=== PATIENT | male | born 1990 | race American Indian/Alaskan Native ===

== ENCOUNTER 2018-06-17 14:43 | Emergency (ER) | payer SELFPAY ==
--- NOTE | 2018-06-17 14:59 | Emergency Department Report ---
Blank Doc - Documentation Documentation: This is a 27-year-old male that presents with URI symptoms. This initial assessment/diagnostic orders/clinical plan/treatment(s) is/are subject to change based on patient's health status, clinical progression and re- assessment by fellow clinical providers in the ED. Further treatment and workup at subsequent clinical providers discretion. Patient/guardians urged not to elope from the ED as their condition may be serious if not clinically assessed and managed. Initial orders include: 1- Patient sent to [facility] for further evaluation and treatment 2- CXR
--- NOTE | 2018-06-17 16:35 | XRay Report ---
PROCEDURE: XR CHEST ROUTINE 2V TECHNIQUE: PA and lateral views of the chest. HISTORY: cough COMPARISONS: None FINDINGS: Lines, tubes, and devices: N/A Lungs and pleura: Trachea is normal in position. Lungs are clear of infiltrate, pleural effusion, vas cular congestion, or pneumothorax. Cardiomediastinal silhouette: Cardiac and mediastinal silhouettes are unremarkable. Other: Bony structures are intact. IMPRESSION: No acute cardiopulmonary process seen. This document is electronically signed by Rain De Leon MD., June 17 2018 04:33:37 PM ET
[2018-06-17] MEDS ORDERED: TYLENOL PO ONE (17:38)
[2018-06-17] MEDS ORDERED: TYLENOL ONE (17:39)
--- NOTE | 2018-06-17 19:49 | Emergency Department Report ---
- General Chief Complaint: Upper Respiratory Infection Stated Complaint: CHEST PAIN/WEAKNESS Time Seen by Provider: 06/17/18 14:58 Source: patient Mode of arrival: Ambulatory Limitations: No Limitations - History of Present Illness Initial Comments: Pt is a 27 yo male who presents to the ED with c/o a sore throat that began two days ago. Pt has associated generalized body aches, fever, ROBERTS, congestion. Pt denies any cough or sick contacts. He has not taking anything. He is a smoker. - Related Data Previous Rx's Medication Instructions Recorded Last Taken Type Benzocaine/Menth/Cetylpyrd 8 each MM DAILY PRN #1 packet 06/17/18 Unknown Rx [Cepacol X Strength] Fluticasone [Flonase] 1 spray NS QDAY #1 bottle 06/17/18 Unknown Rx guaiFENesin [Mucinex] 600 mg PO BID #14 tab.er.12h 06/17/18 Unknown Rx Allergies Allergy/AdvReac Type Severity Reaction Status Date / Time No Known Allergies Allergy Unverified 06/17/18 14:46 ED Review of Systems ROS: Stated complaint: CHEST PAIN/WEAKNESS Other details as noted in HPI Comment: All other systems reviewed and negative ED Past Medical Hx - Past Medical History Previous Medical History?: No - Surgical History Past Surgical History?: No - Social History Smoking Status: Current Every Day Smoker Substance Use Type: None - Medications Home Medications: Home Medications Medication Instructions Recorded Confirmed Last Taken Type Benzocaine/Menth/Cetylpyrd 8 each MM DAILY PRN #1 packet 06/17/18 Unknown Rx [Cepacol X Strength] Fluticasone [Flonase] 1 spray NS QDAY #1 bottle 06/17/18 Unknown Rx guaiFENesin [Mucinex] 600 mg PO BID #14 tab.er.12h 06/17/18 Unknown Rx ED Physical Exam - General Limitations: No Limitations General appearance: alert, in no apparent distress - Head Head exam: Present: atraumatic, normocephalic - ENT ENT exam: Present: other (mild posterior oropharynx erythema, no tonsillar exudates or hypertrophy, crusted mucus drainage from bilateral nares, no sinus tenderness bilaterally) - Neck Neck exam: Present: normal inspection. Absent: meningismus - Respiratory Respiratory exam: Present: normal lung sounds bilaterally. Absent: respiratory distress, wheezes, rales, rhonchi, stridor, chest wall tenderness, accessory muscle use, decreased breath sounds - Cardiovascular Cardiovascular Exam: Present: regular rate, normal rhythm, normal heart sounds. Absent: systolic murmur, rubs, gallop - Neurological Exam Neurological exam: Present: alert, oriented X3 - Psychiatric Psychiatric exam: Present: normal affect, normal mood - Skin Skin exam: Present: warm, dry, intact ED Course Vital Signs 06/17/18 06/17/18 06/17/18 14:59 16:20 17:39 Temperature 99.4 F 101.3 F H Pulse Rate 101 H 100 H Respiratory 18 18 16 Rate Blood Pressure 125/70 Blood Pressure 116/75 [Right] O2 Sat by Pulse 98 97 Oximetry 06/17/18 20:05 Temperature 98.5 F Pulse Rate 72 Respiratory 16 Rate Blood Pressure Blood Pressure 124/65 [Right] O2 Sat by Pulse 100 Oximetry ED Medical Decision Making - Lab Data Laboratory Results - last 72 hr 06/17/18 Unknown Influenza A (Rapid) Negative Influenza B (Rapid) Negative Group A Strep Rapid Negative - Radiology Data Radiology results: report reviewed CXR no acute process - Medical Decision Making Pt is a 27 yo male who presents to the ED with c/o a sore throat that began two days ago. Pt has associated generalized body aches, fever, ROBERTS, congestion. Pt denies any cough or sick contacts. He has not taking anything. He is a smoker. CXR with no acute process. Flu and strep negative. sx and examination consistent with URI. Will tx symptomatically. Advised to continue to drink plenty of fluids. Follow up with PCP in the next 2-3 days. Return to the emergency room for any new or worsening symptoms. - Differential Diagnosis PNA, URI, Strep, Flu, Viral syndrome Critical care attestation.: If time is entered above; I have spent that time in minutes in the direct care of this critically ill patient, excluding procedure time. ED Disposition Clinical Impression: Upper respiratory infection Qualifiers: URI type: unspecified URI Qualified Code(s): J06.9 - Acute upper respiratory infection, unspecified Disposition: - TO HOME OR SELFCARE Is pt being admited?: No Does the pt Need Aspirin: No Condition: Stable Instructions: Upper Respiratory Infection (ED) Additional Instructions: follow up with a primary care doctor in the next 2-3 days. Take medication as prescribed. Drink plenty of fluids. Salt water gargle. Alternate tylenol and motrin for a temperature of 100.4 or greater. Return to the emergency room for any new or worsening symptoms. Prescriptions: Benzocaine/Menth/Cetylpyrd [Cepacol X Strength] 8 each MM DAILY PRN #1 packet PRN Reason: Sore Throat Fluticasone [Flonase] 1 spray NS QDAY #1 bottle guaiFENesin [Mucinex] 600 mg PO BID #14 tab.er.12h Referrals: SELINA BRINK MD [Primary Care Provider] - 2-3 Days Time of Disposition: 19:46 Print Language: KYRGYZ
[2018-06-17 20:07] VITALS: BP 124/65
== END 2018-06-17 20:07 | disposition home or self-care (01) ==
LOC: ED 14:43
DX: J06.9 Acute upper respiratory infection, unspecified (principal); F17.200 Nicotine dependence, unspecified, uncomplicated
CPT/HCPCS: 71046; 87116; 87400; 87430

== ENCOUNTER 2018-06-19 01:12 | Emergency (ER) | payer SELFPAY | END 2018-06-19 01:38 | disposition left against medical advice (07) | LOC: ED 01:12 | DX: J11.1 Influenza due to unidentified influenza virus with other respiratory manifestations (principal); Z53.21 Procedure and treatment not carried out due to patient leaving prior to being seen by health care provider ==

== ENCOUNTER 2020-02-14 11:13 | Emergency (ER) | payer SELFPAY ==
[2020-02-14 11:36] VITALS: BP 118/69
--- NOTE | 2020-02-14 12:00 | Emergency Department Report ---
ED ENT HPI - General Chief complaint: Sore Throat Stated complaint: DIFF BREATHNING SWEATING Source: patient Mode of arrival: Ambulatory Limitations: No Limitations - History of Present Illness Initial comments: This pleasant 29-year-old male presents the emergency department chief complaint of sore throat, fever, generalized body aches, headache, malaise over the past 2 3 days. Patient unsure of any sick contacts. He denies any associated nausea, vomiting, diarrhea, jasmin pain, chest pain, cough, lower extremity edema, weakness or any other associated symptoms. He denies any past medical history, current medication use or known allergies to medications. Immunizations are up-to-date. MD complaint: sore throat - Related Data Previous Rx's Medication Instructions Recorded Last Taken Type Benzocaine/Mentho [Cepacol X 8 each MM DAILY PRN #1 packet 06/17/18 Unknown Rx Strength] Fluticasone [Flonase] 1 spray NS QDAY #1 bottle 06/17/18 Unknown Rx guaiFENesin [Mucinex] 600 mg PO BID #14 tab.er.12h 06/17/18 Unknown Rx DOXYCYCLINE Hyclate [Vibramycin 100 mg PO Q12HR #20 capsule 02/14/20 Unknown Rx CAP] Ibuprofen [Motrin 800 MG tab] 800 mg PO Q8HR #30 tablet 02/14/20 Unknown Rx Allergies Allergy/AdvReac Type Severity Reaction Status Date / Time No Known Allergies Allergy Unverified 06/17/18 14:46 ED Dental HPI - General Chief complaint: Sore Throat Stated complaint: DIFF BREATHNING SWEATING Source: patient Mode of arrival: Ambulatory Limitations: No Limitations - Related Data Previous Rx's Medication Instructions Recorded Last Taken Type Benzocaine/Mentho [Cepacol X 8 each MM DAILY PRN #1 packet 06/17/18 Unknown Rx Strength] Fluticasone [Flonase] 1 spray NS QDAY #1 bottle 06/17/18 Unknown Rx guaiFENesin [Mucinex] 600 mg PO BID #14 tab.er.12h 06/17/18 Unknown Rx DOXYCYCLINE Hyclate [Vibramycin 100 mg PO Q12HR #20 capsule 02/14/20 Unknown Rx CAP] Ibuprofen [Motrin 800 MG tab] 800 mg PO Q8HR #30 tablet 02/14/20 Unknown Rx Allergies Allergy/AdvReac Type Severity Reaction Status Date / Time No Known Allergies Allergy Unverified 06/17/18 14:46 ED Review of Systems ROS: Stated complaint: DIFF BREATHNING SWEATING Other details as noted in HPI Comment: All other systems reviewed and negative Constitutional: fever. denies: chills Eyes: denies: eye pain, eye discharge, vision change ENT: throat pain. denies: ear pain Respiratory: denies: cough, shortness of breath, wheezing Cardiovascular: denies: chest pain, palpitations Endocrine: no symptoms reported Gastrointestinal: denies: abdominal pain, nausea, diarrhea Genitourinary: denies: urgency, dysuria Musculoskeletal: denies: back pain, joint swelling, arthralgia Skin: denies: rash, lesions Neurological: denies: headache, weakness, paresthesias Psychiatric: denies: anxiety, depression Hematological/Lymphatic: denies: easy bleeding, easy bruising ED Past Medical Hx - Past Medical History Previous Medical History?: No - Surgical History Past Surgical History?: No - Social History Smoking Status: Current Every Day Smoker Substance Use Type: None - Medications Home Medications: Home Medications Medication Instructions Recorded Confirmed Last Taken Type Benzocaine/Mentho [Cepacol X 8 each MM DAILY PRN #1 packet 06/17/18 Unknown Rx Strength] Fluticasone [Flonase] 1 spray NS QDAY #1 bottle 06/17/18 Unknown Rx guaiFENesin [Mucinex] 600 mg PO BID #14 tab.er.12h 06/17/18 Unknown Rx DOXYCYCLINE Hyclate [Vibramycin 100 mg PO Q12HR #20 capsule 02/14/20 Unknown Rx CAP] Ibuprofen [Motrin 800 MG tab] 800 mg PO Q8HR #30 tablet 02/14/20 Unknown Rx ED Physical Exam - General Limitations: No Limitations General appearance: alert, in no apparent distress - Head Head exam: Present: atraumatic, normocephalic - Eye Eye exam: Present: normal appearance, PERRL, EOMI Pupils: Present: normal accommodation - ENT ENT exam: Present: normal exam, mucous membranes moist, other (Bilateral tonsillar exudate with 1+ tonsillar enlargement. Normal symmetrical appearing tonsils otherwise. No peritonsillar bulging, retropharyngeal bulging or tongue elevation. No dysphonia or drooling. Tender anterior cervical lymphadenopathy bilaterally.) - Neck Neck exam: Present: normal inspection, full ROM, lymphadenopathy. Absent: tenderness, meningismus - Respiratory Respiratory exam: Present: normal lung sounds bilaterally. Absent: respiratory distress, chest wall tenderness - Cardiovascular Cardiovascular Exam: Present: regular rate, normal rhythm. Absent: systolic murmur, diastolic murmur, rubs, gallop - GI/Abdominal GI/Abdominal exam: Present: soft, normal bowel sounds, other (Negative Dasha's point tenderness, negative Romero sign). Absent: distended, tenderness, guarding, rebound, rigid - Rectal Rectal exam: Present: deferred - exam: Present: normal inspection, vertical testicular lie, other (Chaperoned by marketing producer Rio). Absent: testicular tenderness, urethral discharge, scrotal swelling External exam: Absent: lesions - Extremities Exam Extremities exam: Present: normal inspection - Back Exam Back exam: Present: normal inspection - Neurological Exam Neurological exam: Present: alert, oriented X3 - Psychiatric Psychiatric exam: Present: normal affect, normal mood - Skin Skin exam: Present: warm, dry, intact, normal color. Absent: rash ED Course Vital Signs 02/14/20 11:31 Temperature 99.6 F Respiratory 16 Rate Blood Pressure 118/69 ED Medical Decision Making - Medical Decision Making Patient's exam is consistent with streptococcal tonsillitis. Centor criteria is 4 for positive. Patient does not meet sirs criteria. He he did also mention he had some pain to the top of his left testicle that started yesterday. On exam his testicles are both low in the scrotum. There is no high riding testicle. There is no testicular tenderness. There is very minimal tenderness to the left epididymis. There are no varicoceles, hydroceles. No horizontal or vertical IMI suspicion for testicular torsion is very low at this time. We will treat the patient for strep throat but will also cover for epididymitis with doxycycline. Recommended testicular support and outpatient follow-up with primary care doctor. He instructed to return to [facility] department he develops any change or worsening symptoms. Verbalized understand the diagnosis, treatment plan and follow-up instructions all his questions were answered. - Differential Diagnosis Strep throat, mononucleosis, viral syndrome Critical care attestation.: If time is entered above; I have spent that time in minutes in the direct care of this critically ill patient, excluding procedure time. ED Disposition Clinical Impression: Epididymitis, Acute tonsillitis Disposition: [id number]-01 TO HOME OR SELFCARE Is pt being admited?: No Condition: Stable Instructions: Epididymitis (ED), Testicular Self-Exam, Tonsillitis Prescriptions: Ibuprofen [Motrin 800 MG tab] 800 mg PO Q8HR #30 tablet DOXYCYCLINE Hyclate [Vibramycin CAP] 100 mg PO Q12HR #20 capsule Referrals: [facility] [Provider Group] - 3-5 Days Forms: Work/School Release Form(ED) Time of Disposition: 12:05
== END 2020-02-14 12:12 | disposition home or self-care (01) ==
LOC: ED 11:13
DX: N45.1 Epididymitis (principal); J03.90 Acute tonsillitis, unspecified; F17.200 Nicotine dependence, unspecified, uncomplicated; Z79.899 Other long term (current) drug therapy
CPT/HCPCS: 82962

== ENCOUNTER 2021-04-29 04:33 | Emergency (ER) | payer SELFPAY ==
[2021-04-29 06:04] LABS: Basophils % (Auto) 0.4 % (0.0-1.8); Eosinophils % (Auto) 0.7 % (0.0-4.3); Hematocrit 45.9 % (35.5-45.6); Lymphocytes # (Auto) 1.1 K/mm3 (1.2-5.4); Lymphocytes % (Auto) 23.3 % (13.4-35.0); Mean Corpuscular HGB Conc 33 % (32-34); Mean Corpuscular Volume 85 fl (84-94); Monocytes # (Auto) 0.4 K/mm3 (0.0-0.8); Monocytes % (Auto) 8.8 % (0.0-7.3); Platelet Count 249 K/mm3 (140-440); Red Cell Distribution Width 14.1 % (13.2-15.2)
[2021-04-29 06:18] LABS: BUN/Creatinine Ratio 14; Blood Urea Nitrogen 15 mg/dL (9-20); Calcium 9.5 mg/dL (8.4-10.2); Hemolysis Index 6
[2021-04-29 06:30] LABS: Bilirubin,Urine NEG (Negative); Blood,Urine NEG (Negative); Color,Urine Yellow (Yellow); Mucus,Urine 1+ /HPF; RBC,Urine < 1.0 /HPF (0.0-6.0)
[2021-04-29] MEDS ORDERED: METHADONE 10 MG TAB PO ONE (06:31)
[2021-04-29] MEDS ORDERED: cloNIDine 0.1 MG TAB PO ONE (06:33)
[2021-04-29] MEDS ORDERED: SODIUM CHLORIDE 0.9% 1000 ML 1,000 ML IV ONE ×2 (06:35→08:46)
[2021-04-29] MEDS ORDERED: ONDANSETRON 4 MG/2 ML INJ IV ONE (06:35)
[2021-04-29] MEDS ORDERED: LORazepam 2 MG/ML VIAL IV ONE (06:35)
--- NOTE | 2021-04-29 06:47 | Emergency Department Report ---
ED Psych HPI - General Chief Complaint: Psych Stated Complaint: NAUSEA AND VOMITING Time Seen by Provider: 04/29/21 06:09 Source: patient, EMS Mode of arrival: Stretcher Limitations: No Limitations - History of Present Illness Initial Comments: 30-year-old male with a past medical history of opioid abuse presents to the hospital complaining of opiate withdrawals and went to detox. Patient chronically uses "a lot" of fentanyl daily for several months. Last dose was yesterday. He currently complains of generalized body aches, feeling hot and cold, restlessness, fever, nausea and vomiting. He denies diarrhea, abdominal pain, suicidal ideation, homicidal ideation, or psychosis. - Related Data Previous Rx's Medication Instructions Recorded Last Taken Type Benzocaine/Mentho [Cepacol X 8 each MM DAILY PRN #1 packet 06/17/18 Unknown Rx Strength] Fluticasone [Flonase] 1 spray NS QDAY #1 bottle 06/17/18 Unknown Rx guaiFENesin [Mucinex] 600 mg PO BID #14 tab.er.12h 06/17/18 Unknown Rx DOXYCYCLINE Hyclate [Vibramycin 100 mg PO Q12HR #20 capsule 02/14/20 Unknown Rx CAP] Ibuprofen [Motrin 800 MG tab] 800 mg PO Q8HR #30 tablet 02/14/20 Unknown Rx Ondansetron [Zofran Odt] 4 mg PO Q8HR PRN #20 tab.rapdis 04/29/21 Unknown Rx cloNIDine [Catapres] 0.1 mg PO Q6H PRN #8 tablet 04/29/21 Unknown Rx Allergies Allergy/AdvReac Type Severity Reaction Status Date / Time No Known Allergies Allergy Verified 04/29/21 04:50 ED Review of Systems ROS: Stated complaint: NAUSEA AND VOMITING Other details as noted in HPI Comment: All other systems reviewed and negative ED Past Medical Hx - Past Medical History Previous Medical History?: No - Surgical History Past Surgical History?: No - Social History Smoking Status: Current Every Day Smoker Substance Use Type: Alcohol, Other - Medications Home Medications: Home Medications Medication Instructions Recorded Confirmed Last Taken Type Benzocaine/Mentho [Cepacol X 8 each MM DAILY PRN #1 packet 06/17/18 Unknown Rx Strength] Fluticasone [Flonase] 1 spray NS QDAY #1 bottle 06/17/18 Unknown Rx guaiFENesin [Mucinex] 600 mg PO BID #14 tab.er.12h 06/17/18 Unknown Rx DOXYCYCLINE Hyclate [Vibramycin 100 mg PO Q12HR #20 capsule 02/14/20 Unknown Rx CAP] Ibuprofen [Motrin 800 MG tab] 800 mg PO Q8HR #30 tablet 02/14/20 Unknown Rx Ondansetron [Zofran Odt] 4 mg PO Q8HR PRN #20 tab.rapdis 04/29/21 Unknown Rx cloNIDine [Catapres] 0.1 mg PO Q6H PRN #8 tablet 04/29/21 Unknown Rx ED Physical Exam - General Limitations: No Limitations - Other Other exam information: General: No acute distress Head: Atraumatic Eyes: normal appearance ENT: Moist mucous membranes Neck: Normal appearance, no midline tenderness Chest: Clear to auscultation bilaterally CV: Mild tachycardia Abdomen: Soft, normal bowel sounds, nontender, nondistended, no rebound or guarding Back: Normal inspection Extremity: Normal inspection, full range of motion Neuro: Alert O x 3, no facial asymmetry, speech clear, no gross motor sensory deficit Psych: Restless Skin: No rash ED Course Vital Signs 04/29/21 04/29/21 04/29/21 04:50 05:45 05:46 Temperature 97.9 F Pulse Rate 100 H Respiratory 16 18 Rate Blood Pressure 144/77 Blood Pressure 157/108 [Left] O2 Sat by Pulse 100 100 100 Oximetry 04/29/21 04/29/21 04/29/21 06:00 06:16 06:46 Temperature Pulse Rate Respiratory Rate Blood Pressure 145/76 162/66 135/115 Blood Pressure [Left] O2 Sat by Pulse 100 99 98 Oximetry 04/29/21 04/29/21 04/29/21 06:51 07:00 07:16 Temperature Pulse Rate 70 Respiratory Rate Blood Pressure 135/115 127/41 127/55 Blood Pressure [Left] O2 Sat by Pulse 99 99 Oximetry 04/29/21 04/29/21 04/29/21 07:30 07:46 08:00 Temperature Pulse Rate Respiratory Rate Blood Pressure 134/83 134/83 114/67 Blood Pressure [Left] O2 Sat by Pulse 99 96 97 Oximetry 04/29/21 04/29/21 04/29/21 08:16 08:30 08:34 Temperature Pulse Rate 66 Respiratory 16 Rate Blood Pressure 130/67 120/68 Blood Pressure 120/68 [Left] O2 Sat by Pulse 98 97 99 Oximetry 04/29/21 04/29/21 04/29/21 08:46 09:00 09:16 Temperature Pulse Rate Respiratory Rate Blood Pressure 134/75 131/83 95/48 Blood Pressure [Left] O2 Sat by Pulse 98 98 98 Oximetry 04/29/21 04/29/21 04/29/21 09:30 09:46 10:00 Temperature Pulse Rate Respiratory Rate Blood Pressure 119/61 109/50 116/54 Blood Pressure [Left] O2 Sat by Pulse 97 99 99 Oximetry 04/29/21 04/29/21 04/29/21 10:16 10:30 10:46 Temperature Pulse Rate Respiratory Rate Blood Pressure 109/55 127/62 99/38 Blood Pressure [Left] O2 Sat by Pulse 97 96 99 Oximetry 04/29/21 04/29/21 10:59 11:13 Temperature 98.1 F Pulse Rate 77 Respiratory 17 Rate Blood Pressure Blood Pressure 141/91 [Left] O2 Sat by Pulse 99 Oximetry ED Medical Decision Making - Lab Data Result diagrams: 04/29/21 05:44 04/29/21 05:44 Lab Results 04/29/21 04/29/21 04/29/21 Range/Units 05:26 05:26 05:44 WBC (4.5-11.0) K/mm3 RBC (3.65-5.03) M/mm3 Hgb (11.8-15.2) gm/dl Hct (35.5-45.6) % MCV (84-94) fl MCH (28-32) pg MCHC (32-34) % RDW (13.2-15.2) % Plt Count (140-440) K/mm3 Lymph % (Auto) (13.4-35.0) % Young % (Auto) (0.0-7.3) % Eos % (Auto) (0.0-4.3) % Baso % (Auto) (0.0-1.8) % Lymph # (Auto) (1.2-5.4) K/mm3 Young # (Auto) (0.0-0.8) K/mm3 Eos # (Auto) (0.0-0.4) K/mm3 Baso # (Auto) (0.0-0.1) K/mm3 Seg Neutrophils % (40.0-70.0) % Seg Neutrophils # (1.8-7.7) K/mm3 Sodium (137-145) mmol/L Potassium (3.6-5.0) mmol/L Chloride (98-107) mmol/L Carbon Dioxide (22-30) mmol/L Anion Gap mmol/L BUN (9-20) mg/dL Creatinine (0.8-1.3) mg/dL Estimated GFR ml/min BUN/Creatinine Ratio % Glucose (75-100) mg/dL Calcium (8.4-10.2) mg/dL Total Bilirubin (0.1-1.2) mg/dL Direct Bilirubin (0-0.2) mg/dL Indirect Bilirubin mg/dL AST (5-40) units/L ALT (7-56) units/L Alkaline Phosphatase (35-129) units/L Total Protein (6.3-8.2) g/dL Albumin (3.9-5) g/dL Albumin/Globulin Ratio % Lipase (13-60) units/L Urine Color Yellow (Yellow) Urine Turbidity Clear (Clear) Urine pH 6.0 (5.0-7.0) Ur Specific [place] 1.032 H (1.003-1.030) Urine Protein 30 mg/dl (Negative) mg/dL Urine Glucose (UA) Neg (Negative) mg/dL Urine Ketones 80 (Negative) mg/dL Urine Blood Neg (Negative) Urine Nitrite Neg (Negative) Urine Bilirubin Neg (Negative) Urine Urobilinogen 4.0 (<2.0) mg/dL Ur Leukocyte Esterase Neg (Negative) Urine WBC (Auto) 1.0 (0.0-6.0) /HPF Urine RBC (Auto) < 1.0 (0.0-6.0) /HPF Urine Mucus 1+ /HPF Salicylates < 0.3 L (2.8-20.0) mg/dL Urine Opiates Screen Negative Urine Methadone Screen Negative Acetaminophen (10.0-30.0) ug/mL Ur Barbiturates Screen Negative Ur Phencyclidine Scrn Negative Ur Amphetamines Screen Positive U Benzodiazepines Scrn Negative Urine Cocaine Screen Negative U Marijuana (THC) Screen Positive Drugs of Abuse Note Disclamer Plasma/Serum Alcohol (0-0.07) % 04/29/21 04/29/21 04/29/21 Range/Units 05:44 05:44 05:44 WBC (4.5-11.0) K/mm3 RBC (3.65-5.03) M/mm3 Hgb (11.8-15.2) gm/dl Hct (35.5-45.6) % MCV (84-94) fl MCH (28-32) pg MCHC (32-34) % RDW (13.2-15.2) % Plt Count (140-440) K/mm3 Lymph % (Auto) (13.4-35.0) % Young % (Auto) (0.0-7.3) % Eos % (Auto) (0.0-4.3) % Baso % (Auto) (0.0-1.8) % Lymph # (Auto) (1.2-5.4) K/mm3 Young # (Auto) (0.0-0.8) K/mm3 Eos # (Auto) (0.0-0.4) K/mm3 Baso # (Auto) (0.0-0.1) K/mm3 Seg Neutrophils % (40.0-70.0) % Seg Neutrophils # (1.8-7.7) K/mm3 Sodium 136 L (137-145) mmol/L Potassium 4.0 (3.6-5.0) mmol/L Chloride 100.9 (98-107) mmol/L Carbon Dioxide 21 L (22-30) mmol/L Anion Gap 18 mmol/L BUN 15 (9-20) mg/dL Creatinine 1.1 (0.8-1.3) mg/dL Estimated GFR > 60 ml/min BUN/Creatinine Ratio 14 % Glucose 105 H (75-100) mg/dL Calcium 9.5 (8.4-10.2) mg/dL Total Bilirubin (0.1-1.2) mg/dL Direct Bilirubin (0-0.2) mg/dL Indirect Bilirubin mg/dL AST (5-40) units/L ALT (7-56) units/L Alkaline Phosphatase (35-129) units/L Total Protein (6.3-8.2) g/dL Albumin (3.9-5) g/dL Albumin/Globulin Ratio % Lipase (13-60) units/L Urine Color (Yellow) Urine Turbidity (Clear) Urine pH (5.0-7.0) Ur Specific [place] (1.003-1.030) Urine Protein (Negative) mg/dL Urine Glucose (UA) (Negative) mg/dL Urine Ketones (Negative) mg/dL Urine Blood (Negative) Urine Nitrite (Negative) Urine Bilirubin (Negative) Urine Urobilinogen (<2.0) mg/dL Ur Leukocyte Esterase (Negative) Urine WBC (Auto) (0.0-6.0) /HPF Urine RBC (Auto) (0.0-6.0) /HPF Urine Mucus /HPF Salicylates (2.8-20.0) mg/dL Urine Opiates Screen Urine Methadone Screen Acetaminophen 5.0 L (10.0-30.0) ug/mL Ur Barbiturates Screen Ur Phencyclidine Scrn Ur Amphetamines Screen U Benzodiazepines Scrn Urine Cocaine Screen U Marijuana (THC) Screen Drugs of Abuse Note Plasma/Serum Alcohol < 0.01 (0-0.07) % 04/29/21 04/29/21 Range/Units 05:44 05:44 WBC 4.6 (4.5-11.0) K/mm3 RBC 5.40 H (3.65-5.03) M/mm3 Hgb 15.0 (11.8-15.2) gm/dl Hct 45.9 H (35.5-45.6) % MCV 85 (84-94) fl MCH 28 (28-32) pg MCHC 33 (32-34) % RDW 14.1 (13.2-15.2) % Plt Count 249 (140-440) K/mm3 Lymph % (Auto) 23.3 (13.4-35.0) % Young % (Auto) 8.8 H (0.0-7.3) % Eos % (Auto) 0.7 (0.0-4.3) % Baso % (Auto) 0.4 (0.0-1.8) % Lymph # (Auto) 1.1 L (1.2-5.4) K/mm3 Young # (Auto) 0.4 (0.0-0.8) K/mm3 Eos # (Auto) 0.0 (0.0-0.4) K/mm3 Baso # (Auto) 0.0 (0.0-0.1) K/mm3 Seg Neutrophils % 66.8 (40.0-70.0) % Seg Neutrophils # 3.1 (1.8-7.7) K/mm3 Sodium (137-145) mmol/L Potassium (3.6-5.0) mmol/L Chloride (98-107) mmol/L Carbon Dioxide (22-30) mmol/L Anion Gap mmol/L BUN (9-20) mg/dL Creatinine (0.8-1.3) mg/dL Estimated GFR ml/min BUN/Creatinine Ratio % Glucose (75-100) mg/dL Calcium (8.4-10.2) mg/dL Total Bilirubin 0.60 (0.1-1.2) mg/dL Direct Bilirubin < 0.2 (0-0.2) mg/dL Indirect Bilirubin 0.4 mg/dL AST 21 (5-40) units/L ALT 27 (7-56) units/L Alkaline Phosphatase 58 (35-129) units/L Total Protein 7.1 (6.3-8.2) g/dL Albumin 4.7 (3.9-5) g/dL Albumin/Globulin Ratio 2.0 % Lipase 16 (13-60) units/L Urine Color (Yellow) Urine Turbidity (Clear) Urine pH (5.0-7.0) Ur Specific [place] (1.003-1.030) Urine Protein (Negative) mg/dL Urine Glucose (UA) (Negative) mg/dL Urine Ketones (Negative) mg/dL Urine Blood (Negative) Urine Nitrite (Negative) Urine Bilirubin (Negative) Urine Urobilinogen (<2.0) mg/dL Ur Leukocyte Esterase (Negative) Urine WBC (Auto) (0.0-6.0) /HPF Urine RBC (Auto) (0.0-6.0) /HPF Urine Mucus /HPF Salicylates (2.8-20.0) mg/dL Urine Opiates Screen Urine Methadone Screen Acetaminophen (10.0-30.0) ug/mL Ur Barbiturates Screen Ur Phencyclidine Scrn Ur Amphetamines Screen U Benzodiazepines Scrn Urine Cocaine Screen U Marijuana (THC) Screen Drugs of Abuse Note Plasma/Serum Alcohol (0-0.07) % - Medical Decision Making Patient endorses fentanyl abuse. UDS is positive for marijuana and amphetamines. Patient treated with clonidine, Ativan, and Zofran as well as normal saline in the department. Patient tolerated clonidine without hypotension. Note that patient did have systolic of 99 documented when the cough was not on the patient properly and repeat showed no signs of hypotension patient has been seen by mental health with recommendation clonidine 0.1 mg every 6 as needed for withdrawal symptoms. Zofran will also be provided. Outpatient resources will be provided and patient will be discharged Critical Care Time: No Critical care attestation.: If time is entered above; I have spent that time in minutes in the direct care of this critically ill patient, excluding procedure time. ED Disposition Clinical Impression: Opioid abuse with withdrawal, Amphetamine abuse Disposition: HOME / SELF CARE / HOMELESS Is pt being admited?: No Does the pt Need Aspirin: No Condition: Stable Instructions: Amphetamines Use Disorder, Opioid Withdrawal Treatment, Clonidine tablets Additional Instructions: Take the medication as prescribed. Please note clonidine can cause low blood pressure. If you feel lightheaded or dizzy or have a blood pressure less than 90/60 or heart rate less than 60 then do not take the medication. Follow-up with your doctor or doctor/clinic provided. Return if symptoms worsen as indicated by your discharge instructions. LUIS: [facility] - [address] [place] [address] Friday thru Friday - 8am - 5pm RADHA: [facility] Address: [address], [place] [address] HANSEL: [facility] Address: [address] [place] [address] Friday thru Friday- 7am-2pm [facility] Address: [address] [place] [address] Friday thru Friday: 8:30AM-5PM In case of an emergency, please contact the following numbers: [place] Crisis and Access Line: Number: Crisis Text Line: (Text START) Number: [id number] Suicide Prevention Line: Number: Emergency Number: 911 SUBSTANCE ABUSE PROGRAMS: [facility]: Location: [place], [place] [facility] Address: [address] [place] [address] [facility]: Address: [address] [place] [address] [facility]: Address: [address] [place] [address] [facility]: Address: [address] [place] [address] [facility] Address: [address] [place] [address]. Please contact above numbers to attempt placement into free based program. Medicaid Programs: [facility]: Address: [address] [place] [address] [facility]: Address: [address] [place] [address] Phone: [phone] Initialized on 04/29/21 10:31 - END OF NOTE Prescriptions: cloNIDine [Catapres] 0.1 mg PO Q6H PRN #8 tablet PRN Reason: Anxiety Ondansetron [Zofran Odt] 4 mg PO Q8HR PRN #20 tab.rapdis PRN Reason: Nausea And Vomiting Referrals: PRIMARY CARE, [Primary Care Provider] - 3-5 Days Time of Disposition: 11:33
[2021-04-29 06:54] LABS: Alanine Aminotransferase 27 units/L (7-56); Albumin 4.7 g/dL (3.9-5)
[2021-04-29 06:56] LABS: Benzodiazepines Screen,Urine Negative; Cocaine Screen,Urine Negative; Methadone Screen,Urine Negative; Opiate Screen,Urine Negative
[2021-04-29 07:04] LABS: Bilirubin,Direct < 0.2 mg/dL (0-0.2)
[2021-04-29 07:10] LABS: Amphetamine Screen,Urine Positive; Cannabinoid Screen,Urine Positive
--- NOTE | 2021-04-29 10:47 | Consultation ---
History of Present Illness - Reason for Consult Consult date: 04/29/21 Reason for consult: mental health evaluation - History of Present Psychiatric Illness ED Note: 30-year-old male with a past medical history of opioid abuse presents to the hospital complaining of opiate withdrawals and went to detox. Patient chronically uses "a lot" of fentanyl daily for several months. Last dose was yesterday. He currently complains of generalized body aches, feeling hot and cold, restlessness, fever, nausea and vomiting. He denies diarrhea, abdominal pain, suicidal ideation, homicidal ideation, or psychosis. The patient is a 30 year old male with history of opioids use disorder. In my interview with the patient, he is calm alert and oriented x3. The patient reports ongoing fentanyl abuse and states he last used about 2 days ago. He states he is trying to get over his addiction. The patient denies any current suicidal/homicidal ideation and denies hallucinations. No withdrawal symptoms observed but he states being anxious. PAST PSYCHIATRIC HISTORY Diagnoses: Denies Suicide attempts or Self-harm behavior: Denies Prior psychiatric hospitalizations: Denies Substance Abuse history: Fentanyl Previous psychiatric medications tried: Denies Outpatient treatment: Denies PAST MEDICAL HISTORY: Family Psychiatric History: Not available SOCIAL HISTORY Marital Status: Single Living Arrangements: Lives with family Employment Status:employed Access to guns/weapons: None reported Education:11th grade History of Abuse: None reported Legal History: None reported REVIEW OF SYSTEMS Constitutional: Negative for weight loss ENT: Negative for stridor Respiratory: Negative for cough or hemoptysis All other systems reviewed and are negative MENTAL STATUS EXAMINATION General Appearance and Behavior: Age appropriate, good hygiene, wearing appropriate clothes, good eye contact, cooperative polite with questioning. Cooperation: Participating/engaged Psychomotor Behavior: unremarkable and within normal limits Mood:OK Affect and affective range: congruent with mood Thought Process: Goal directed Thought Content: Denies Speech: Normal volume, Regular rate and rhythm Intellectual Functioning: Average Suicidal Ideation: Denies Homicidal Ideation: Denies Hallucinations: Denies Impulse Control: Unimpaired Insight and Judgment: Normal insight and judgment Memory: Normal Attention: Divided Orientation: Alert, oriented Assessment and Plan (1)Opioids use disorder (2) Current Visit: Yes Status: Acute RECOMMENDATIONS [id number] continue home meds. Start Clonidine 0.1mg po every 6 hours as needed. Risks, benefits and alternatives of medications discussed with the patient, questions answered and consent obtained from patient. PSYCHOTHERAPY: Supportive psychotherapy provided MEDICAL: Per primary team DELIRIUM PRECAUTIONS: Please re-orient patient frequently, keep lights on during the day, and minimize benzodiazepines and opiates as these medications could worsen patient's confusion. ELECTRICAL MAINTENANCE TECHNICIAN: Per medical team DISPOSITION: Recommend acute inpatient psychiatric hospitalization at this time. FOLLOW-UP: Will follow. Thank you for the consult. Please contact with any questions and/or concerns. Medications and Allergies Medications and Allergies Allergies Allergy/AdvReac Type Severity Reaction Status Date / Time No Known Allergies Allergy Verified 04/29/21 04:50 Home Medications Medication Instructions Recorded Confirmed Last Taken Type Benzocaine/Mentho [Cepacol X 8 each MM DAILY PRN #1 packet 06/17/18 Unknown Rx Strength] Fluticasone [Flonase] 1 spray NS QDAY #1 bottle 06/17/18 Unknown Rx guaiFENesin [Mucinex] 600 mg PO BID #14 tab.er.12h 06/17/18 Unknown Rx DOXYCYCLINE Hyclate [Vibramycin 100 mg PO Q12HR #20 capsule 02/14/20 Unknown Rx CAP] Ibuprofen [Motrin 800 MG tab] 800 mg PO Q8HR #30 tablet 02/14/20 Unknown Rx Mental Status Exam - Vital signs Last Vital Signs Temp 97.9 F 04/29/21 04:50 Pulse 66 04/29/21 08:34 Resp 16 04/29/21 08:34 BP 120/68 04/29/21 08:34 Pulse Ox 99 04/29/21 08:34 Results Result Diagrams: 04/29/21 05:44 04/29/21 05:44 Abnormal lab results 04/29/21 04/29/21 04/29/21 Range/Units 05:26 05:44 05:44 RBC (3.65-5.03) M/mm3 Hct (35.5-45.6) % [place] % (Auto) (0.0-7.3) % Lymph # (Auto) (1.2-5.4) K/mm3 Sodium (137-145) mmol/L Carbon Dioxide (22-30) mmol/L Glucose (75-100) mg/dL Ur Specific [place] 1.032 H (1.003-1.030) Salicylates < 0.3 L (2.8-20.0) mg/dL Acetaminophen 5.0 L (10.0-30.0) ug/mL 04/29/21 04/29/21 Range/Units 05:44 05:44 RBC 5.40 H (3.65-5.03) M/mm3 Hct 45.9 H (35.5-45.6) % [place] % (Auto) 8.8 H (0.0-7.3) % Lymph # (Auto) 1.1 L (1.2-5.4) K/mm3 Sodium 136 L (137-145) mmol/L Carbon Dioxide 21 L (22-30) mmol/L Glucose 105 H (75-100) mg/dL Ur Specific [place] (1.003-1.030) Salicylates (2.8-20.0) mg/dL Acetaminophen (10.0-30.0) ug/mL All other labs normal.
[2021-04-29 11:14] VITALS: BP 141/91
[2021-04-29] MEDS ORDERED: cloNIDine 0.1 MG TAB PO PRN (11:23)
== END 2021-04-29 17:50 | disposition home or self-care (01) ==
LOC: ED 04:33
DX: F11.13 Opioid abuse with withdrawal (principal); F15.10 Other stimulant abuse, uncomplicated; F17.200 Nicotine dependence, unspecified, uncomplicated; F12.10 Cannabis abuse, uncomplicated; Z20.822 Contact with and (suspected) exposure to COVID-19
CPT/HCPCS: 36415; 80048; 80076; 80307; 81001; 83690; 85025; 96361; 96374; 96375; 99285; J2060; J2405; J7030; U0003; 80320; Q0162; G0480